=== PATIENT | male | born 1985 | race Caucasian/White ===

== ENCOUNTER 2018-08-31 13:13 | Outpatient (CLI) | payer OTHER, SELFPAY ==
[2018-09-01 10:58] LABS: Lyme Ab w Rflx to Lyme Confirm Negative
== END 2018-08-31 13:33 ==
PROVIDERS: PCP Naturopath; Visit Provider Naturopath
DX: M25.50 Pain in unspecified joint (principal); R53.83 Other fatigue; R51 Headache
CPT/HCPCS: 36415; 86618

== ENCOUNTER 2019-12-15 07:05 | Outpatient (CLI) | payer MEDICAID, SELFPAY ==
[2019-12-17 18:55] LABS: Patient Race White; SARS-CoV-2 RNA Undetected (Undetected); SARS-CoV-2 Specimen Source Nasopharynx
== END 2019-12-15 07:25 ==
PROVIDERS: PCP Naturopath; Visit Provider Family Medicine
DX: Z11.59 Encounter for screening for other viral diseases (principal)
CPT/HCPCS: U0003

== ENCOUNTER 2020-01-04 08:59 | Outpatient (CLI) | payer MEDICAID, SELFPAY ==
[2020-01-07 13:25] LABS: Patient Race White; SARS-CoV-2 RNA Undetected (Undetected); SARS-CoV-2 Specimen Source Nasal
== END 2020-01-04 09:19 ==
PROVIDERS: PCP Naturopath; Visit Provider Naturopath
DX: R51.9 Headache, unspecified (principal); R53.83 Other fatigue; M79.10 Myalgia, unspecified site; J02.9 Acute pharyngitis, unspecified
CPT/HCPCS: U0003

== ENCOUNTER 2020-08-18 08:54 | Outpatient (CLI) | payer MEDICAID, SELFPAY ==
[2020-08-18 14:41] LABS: ALT 53 U/L (16-63); AST 25 U/L (15-37); Albumin 4.1 g/dL (3.4-5.0); Alkaline Phosphatase 72 U/L (46-116); Anion Gap 8.9 mmol/L (3-11); BUN 14 mg/dL (7-18); Bilirubin, Total 0.8 mg/dL (0.2-1.0); CO2 28.1 mmol/L (21.0-32.0); CREATININE 0.9 mg/dL (0.70-1.30); Calcium 9.7 mg/dL (8.5-10.1); Calculated LDL 229 mg/dL (<100); Chloride 104 mmol/L (98-107); Cholesterol 298 mg/dL (<200); Glucose 91 mg/dL (74-106); HDL Cholesterol 35 mg/dL (40-60); Potassium 4.2 mmol/L (3.5-5.1); Sodium 141 mmol/L (136-145); Total Protein 7.2 g/dL (6.4-8.2); Triglyceride 171 mg/dL (<150)
[2020-08-19 09:46] LABS: HIV-1/2 Ag & Ab Screen Negative (Negative)
[2020-08-20 20:14] LABS: HSV 1 PCR, Blood Negative (Negative); HSV 2 PCR, Blood Negative (Negative)
[2020-08-21 10:26] LABS: Hepatitis A Antibody IgM Negative (Negative); Hepatitis B Core Antibody Negative (Negative); Hepatitis B surface Ag Negative (Negative); Hepatitis C Ab w Rflx HCV PCR Negative (Negative)
[2020-08-21 16:01] LABS: Syphilis Total Ab w/Reflex Nonreactive (Nonreactive)
== END 2020-08-18 08:55 | disposition home or self-care (01) ==
LOC: LBO 08:57
PROVIDERS: PCP Naturopath; Visit Provider Naturopath
DX: E78.5 Hyperlipidemia, unspecified (principal); Z11.3 Encounter for screening for infections with a predominantly sexual mode of transmission; Z11.4 Encounter for screening for human immunodeficiency virus [HIV]; Z11.59 Encounter for screening for other viral diseases
CPT/HCPCS: 36415; 80053; 80061; 86704; 86706; 86709; 86803; 87340; 87389; 87529; 86780

== ENCOUNTER 2020-08-22 10:30 | Outpatient (REF) | payer MEDICAID, SELFPAY ==
[2020-08-24 15:12] LABS: Chlamydia Result Negative (Negative); GC Result Negative (Negative)
== END 2020-08-22 10:31 | disposition home or self-care (01) ==
LOC: LBN 10:30
PROVIDERS: PCP Naturopath; Visit Provider Naturopath
DX: Z11.3 Encounter for screening for infections with a predominantly sexual mode of transmission (principal)
CPT/HCPCS: 87491; 87591

== ENCOUNTER 2021-07-17 22:10 | Emergency (ER) | payer MEDICAID, SELFPAY ==
[2021-07-17 22:15] VITALS: BP 140/94; PULSE 121; RESP 21; TEMP 38.2; O2SAT 96
--- NOTE | 2021-07-17 22:30 | DI.RAD_ITS ---
Exam(s) XR PORTABLE CHEST AP EXAM: XR PORTABLE CHEST AP CLINICAL HISTORY: fever of unknown origin. TECHNIQUE: 2D digital imaging was performed. COMPARISON: No exams were available for comparison FINDINGS: Single AP portable view. Heart size is upper normal. The mediastinum is not widened. There is subsegmental platelike atelectasis in the lower right lung zone. No other pulmonary finding s nor pleural effusions. IMPRESSION: Subsegmental platelike atelectasis noted in the lower right lung zone. DATA REPOSITORY: RADIATION DOSE DELIVERED: All CT scans at this facility use at least one of these dose optimization techniques: automated exposure control; mA and/or kV adjustment per patient size (includes targeted e xams where dose is matched to clinical indication); or iterative reconstruction.
[2021-07-17] MEDS: Normal Saline 1,000 ML 1000 ML IV (22:55)
[2021-07-17 23:01] LABS: Lactate 1.8 mmol/L (0.6-1.4)
[2021-07-17 23:04] LABS: Abs Immature Grans 0.06 10^3/uL (0.0-0.06); Absolute Basophil Count 0.03 10^3/uL (0.0-0.2); Absolute Monocyte Count 0.64 10^3/uL (0.1-0.8); Basophils % 0.2; Eosinophils % 0.4; HCT 43.6 % (40.0-50.0); HGB 15.3 g/dL (13.5-17.5); Immature Grans % 0.4; Lymphocytes % 11.5; MCH 29.4 pg (27.0-33.0); MCHC 35.1 % (32.0-36.0); MCV 84 fL (80-95); MPV 9.5 fL (8.0-11.0); Monocytes % 4.7; Neutrophils % 82.8; Platelet Count 237 10^3/uL (130-400); RBC 5.21 10^6/uL (4.36-5.78); RDW-SD 36.1 fL; WBC 13.61 10^3/uL (4.4-10.8)
[2021-07-17 23:12] VITALS: TEMP 37.9
[2021-07-17] MEDS: Ketorolac 15 MG/ML VIAL IVP (23:12)
[2021-07-17 23:13] LABS: Absolute Eosinophil Count 0.05 10^3/uL (0.0-0.7); Absolute Lymphocyte Count 1.57 10^3/uL (1.2-3.4); Absolute Neutrophil Count 11.27 10^3/uL (1.2-6.7)
[2021-07-17 23:17] LABS: ALT 56 U/L (16-63); AST 23 U/L (15-37); Albumin 4.1 g/dL (3.4-5.0); Alkaline Phosphatase 87 U/L (46-116); Anion Gap 8.7 mmol/L (3-11); BUN 18 mg/dL (7-18); Bilirubin, Total 0.7 mg/dL (0.2-1.0); C-Reactive Protein 0.27 mg/dL (0.0-0.3); CO2 27.3 mmol/L (21.0-32.0); Calcium 8.7 mg/dL (8.5-10.1); Chloride 102 mmol/L (98-107); Glucose 150 mg/dL (74-106); Potassium 3.6 mmol/L (3.5-5.1); Sodium 138 mmol/L (136-145); Total Protein 7.9 g/dL (6.4-8.2)
--- NOTE | 2021-07-17 23:18 | W.ED.GENAD ---
Discharge Plan Disposition Patient Disposition: HOME Condition: Improving Discharge Details Clinical Impression: Fever, Atelectasis of right lung Primary Care Provider: Leola Fernández ED Provider: Shakir Maldonado Home Meds and New Rx's Prescriptions: New levofloxacin 750 mg tablet 750 mg PO DAILY Qty: 7 0RF Continued sulfamethoxazole-trimethoprim 1 EACH tablet 1 ea PO DAILY Qty: 42 1RF milk thistle 150 MG capsule 500 mg PO DAILY niacin 500 MG tablet 500 mg PO DAILY omega-3 fatty acids-fish oil [Fish Oil] 1 EACH capsule 1,000 mg PO DAILY red yeast rice 600 MG tablet 600 mg PO DAILY Diatonaceous Earth 1 tsp PO DAILY Discharge Instructions Instructions: Fever in Adults (ED) Additional Instructions: At this time the patient is atypical. Your laboratory work-up does not show clear evidence of infection. We are still waiting on your blood cultures and the other send out test to return which may help give us more information and understanding. Although your chest x-ray looks very unremarkable and there is no evidence of significant pneumonia, there is evidence of a small area of what is called atelectasis which may be the very early start of pneumonia in your right lung. Out of an abundance of precaution we will continue you on an antibiotic for the time being for treatment of this. we have sent this antibiotic to your pharmacy on file. The antibiotic is called Levaquin, and there is risk of tendon irritation. Please avoid any vigorous physical activity while on the antibiotic. If you notice any pain in your ligaments or joint please stop taking the antibiotic immediately and follow-up closely with the primary care provider. Please drink plenty of fluids, stay well-hydrated, and manage your fever with Tylenol and Motrin. If you notice any worsening of your symptoms, or any new symptoms such as vomiting, diarrhea, fever, chills, shortness of breath, chest pain, numbness, weakness, or fainting , please return immediately to the emergency department for reevaluation. Please follow up with your primary care provider as soon as possible for reassessment and reevaluation. As always, it was a pleasure participating in your medical care today. Referrals: Leola Fernández, ASSISTANT CLINICAL DIRECTOR [Primary Care Provider] - Medical Decision Making This is a 36-year-old male with a past medical history of high cholesterol, as well as a very complicated and quite opaque history of multiple previous undiagnosed infections that have often led to negative culture result and paradoxically long courses of antibiotics with uncertain treatment directions. The patient presents today for evaluation of fever. Patient states that this evening he did have a small amount of alcohol, and while having dinner he noticed pain and swelling in his groin, specifically his left and right inguinal areas, as well as mild achiness in his left toe, fever, chills, and generalized achiness and malaise throughout. He has had his COVID-vaccine. He has been boosted as well. He states that this is similar to how some of his previous episodes have started, and at the same time not identical. He denies any other contacts, however his significant other is a fourth-year medical student about to start residency. She has not been sick though. He denies any history of STDs, and in fact he states that previous STD testing has resulted in negative cultures for gonorrhea or chlamydia. He denies any dysuria. He denies any cough or shortness of breath. He denies any trauma. He does state that the aching in his foot has been going on for the past few weeks but is worsened today. He denies any neck pain or headaches. He denies any other complaints at this time. He denies any known history of HIV. He denies use of IV or illicit drugs before. Physical exam is relatively unremarkable. Scattered inguinal lymph nodes, but no genital abnormalities otherwise. No discharge. Lungs are clear. No meningeal signs. Left great toe demonstrates minimal subtle swelling compared to the right, but certainly no clinical evidence of significant redness or profound warmth comparatively. No clear evidence of a septic joint. The patient's history is certainly atypical. I am not sure if this is a red davis to the current scenario, or the same presentation in a different form. Symptoms may certainly be secondary to a viral etiology tonight, but differential also does include atypical things like mast cell degranulation syndrome, HIV, tickborne illness, or even latent syphilis. Symptoms appear inconsistent with significant pneumonia or meningitis currently. No murmur is auscultated. Symptoms inconsistent with endocarditis. We will evaluate for concerning viral etiologies including flu, COVID, or RSV. We will rehydrate, treat the patient's fever, monitor closely and reassess. 12:55 AM Patient is actually feeling much better after Toradol and Ofirmev. He states that he feels significantly improved. Laboratory work-up has returned very normal. He has a mild white count of 13, but no bandemia. ESR and CRP are both normal. Lactate is unremarkable at 1.8. Electrolytes normal. Urinalysis negative. COVID, flu and RSV are negative. However, lab initially reported that his procalcitonin was 2.0, and because of this in conjunction with his fever I was concerned for a bacterial component, he was started on Levaquin because of this. However about an hour and a half after this resulted, lab then called back and said that it was an error, and his procalcitonin was actually less than 0.1. Patient is certainly a bit of a conundrum. It may just be a viral etiology that causes fever, but with a negative ESR, CRP and procalcitonin I feel that bacterial etiology is less likely. Although the chest x-ray is notably clear on my review, radiology does feel that there is potentially minor subsegmental atelectasis noted in the right mid lung base. Out of an abundance of precaution with the patient's fever since we already started a first dose of antibiotics will continue a course of Levaquin at this time. I do feel that it would be beneficial to see where things go once his tick panel comes back as well as his blood cultures. With no neck pain, meningeal signs, tender abdomen, large inflamed joints, and a negative ESR, negative CRP, and negative procalcitonin I do not see an indication for admission at this time. Additionally patient feels much clinically as it is. I do feel that the patient is stable for discharge. He does have close follow-up in 48 hours. I discussed both with him and his significant other red flags that would be indicative of prompt return. I have extensively reviewed the treatment plan and discharge instructions with the patient. I have addressed all patient concerns at this time. The patient was made aware of what symptoms to monitor for that would warrant a return to the emergency department. Discussed the plan with the patient, they demonstrate verbal understanding and agreement with our assessment and plan at this time. The documentation in this chart was dictated using [employer] dictation software. Please excuse any dictation errors. . FINDINGS: Lungs: Minor subsegmental atelectasis in the right mid lung zone. No airspace consolidation. No significant interstitial disease for the degree of inflation. Pleural spaces: No pleural effusion. No pneumothorax. Heart/Mediastinum: No cardiomegaly. Bones/joints: No acute fracture. IMPRESSION: Minor subsegmental atelectasis in the right mid lung zone. Thank you for allowing us to participate in the care of your patient. Dictated and Authenticated by: Rosy Hawkins MD 07/18/2021 12:52 AM Eastern Time ([place] & [place]) HPI General Date/Time Provider Initiated Documentation: 07/17/21 22:14. HPI Narrative: This is a 36-year-old male with a past medical history of high cholesterol, as well as a very complicated and quite opaque history of multiple previous undiagnosed infections that have often led to negative culture result and paradoxically long courses of antibiotics with uncertain treatment directions. The patient presents today for evaluation of fever. Patient states that this evening he did have a small amount of alcohol, and while having dinner he noticed pain and swelling in his groin, specifically his left and right inguinal areas, as well as mild achiness in his left toe, fever, chills, and generalized achiness and malaise throughout. He has had his COVID-vaccine. He has been boosted as well. He states that this is similar to how some of his previous episodes have started, and at the same time not identical. He denies any other contacts, however his significant other is a fourth-year medical student about to start residency. She has not been sick though. He denies any history of STDs, and in fact he states that previous STD testing has resulted in negative cultures for gonorrhea or chlamydia. He denies any dysuria. He denies any cough or shortness of breath. He denies any trauma. He does state that the aching in his foot has been going on for the past few weeks but is worsened today. He denies any neck pain or headaches. He denies any other complaints at this time. He denies any known history of HIV. He denies use of IV or illicit drugs before. Related Data Home Medications Medication Instructions Recorded Confirmed Diatonaceous Earth 1 tsp PO DAILY 10/30/16 milk thistle 150 mg capsule 500 mg PO DAILY 10/30/16 10/30/16 niacin 500 mg tablet 500 mg PO DAILY 10/30/16 10/30/16 omega-3 fatty acids-fish oil 340 1,000 mg PO DAILY 10/30/16 10/30/16 mg-1,000 mg capsule (Fish Oil) red yeast rice 600 mg tablet 600 mg PO DAILY 10/30/16 10/30/16 sulfamethoxazole 400 1 ea PO DAILY #42 tabs 01/07/17 mg-trimethoprim 80 mg tablet levofloxacin 750 mg tablet 750 mg PO DAILY #7 tabs 07/18/21 Previous Rx's Medication Instructions Recorded sulfamethoxazole 400 1 ea PO DAILY #42 tabs 01/07/17 mg-trimethoprim 80 mg tablet levofloxacin 750 mg tablet 750 mg PO DAILY #7 tabs 07/18/21 Allergies Allergy/AdvReac Type Severity Reaction Status Date / Time No Known Allergies Allergy Unverified 07/17/21 22:23 General Stated Complaint: Cellulitis JANICE: 3 Review of Systems All systems reviewed & are unremarkable except as noted in HPI and below PFSH All Active Problems (Updated 07/18/21 @ 01:51 by Shakir Maldonado DO) Fever (Acute) Atelectasis of right lung (Acute) Arthralgia (Acute) Medical History Cellulitis and abscess of leg Cellulitis of scrotum Epididymitis (12/27/16) per records received, first occurred in 2014. saw urology, Dr. Garcia in 2017. Rash Family History Father Diabetes Paternal Grandmother Diabetes type 2 Mother Hyperlipidemia Maternal Grandfather Hyperlipidemia Social History Smoking/Tobacco Use Status: Never Smoking risk assessment performed?: Yes Alcohol Intake: current Alcohol Intake frequency: 0-2 drinks per day Drug use: Never Adopted: No Caregiver/Support person: No Foster care: No Household members: significant other Housing: house Number of Children: 0 Communication Needs: None Education Level: college Details: bachelor's degree Do you need help understanding health information?: Never Pets and animals: Yes Pets and animals: dog(s) Sexually active: Yes Do you think of yourself as: straight/heterosexual Current gender identity: female What is your relationship status?: living with partner How often do you talk on the phone with friends or family?: three or more times per week How often do you get together with friends or relatives?: twice per week Do you belong to any clubs or organized social groups?: no Panel score (0-1 are the most socially isolated patients): 2 What type of physical activity do you participate in: walking Duration: > 90 minutes/day Frequency: 5-6 times per week Carole/Anglican: None Special carole needs: No Seatbelt use: always Helmet use: Yes Helmet use: always Drive intox or ride w/intox trash truck driver: No Do you feel safe in your relationship?: Yes Exam Narrative Exam Narrative: 1.Const: Well-nourished, Well-developed, appearing stated age 2.Eyes: PERRL, no conjunctival injection, and symmetrical lids. 3.ENT: Atraumatic external nose and ears. Moist MM. Neck: Symmetric, trachea midline, No thyromegaly. Patient demonstrates good movement of cervical neck. There is no nuchal rigidity, no nuchal tenderness. Patient is able to flex the neck without any difficulty or significant pain. Negative Kernig's and Brudzinski sign. No evidence of erythema in the tympanic members. No significant erythema in the posterior oropharynx. 4.CVS: +S1/S2, No murmurs or gallops. Peripheral pulses 2+ and equal in all extremities. Brisk capillary refill in all extremities. 5.RESP: Unlabored respiratory effort. Clear to auscultation bilaterally. No wheezes rales or rhonchi 6.GI: Soft, Nontender/Nondistended, No hepatosplenomegaly. No guarding or rebound. Genital exam demonstrates a few scattered inguinal lymph nodes. No large lymph nodes, granulomas, or bullae's. No crepitus, or tenderness in the thighs, testicles, or penis. No significant discharge from the urethral meatus. No tenderness over the penile shaft or head. Normal cremasteric reflex bilaterally. No clinical evidence of epididymitis, orchitis, or penile infection. 7.MSK: Normocephalic/Atraumatic, Extremities w/o deformity or ttp No cyanosis or clubbing, Normal movement of all extremities. The patient's left great toe demonstrates minimal swelling compared to the right, no significant redness, no significant meli warm comparatively. There may be a minimal slight amount of warm but this would be very subtle. No pain with passive or active movement of the great toes. 8.Skin: Warm, Dry. No rashes or lesions. 9.Neuro: delivery rep II-XII grossly intact. Sensation grossly intact, no focal neurologic deficits. 10.Psych: (AAO) x3. Appropriate mood and affect Course Vital Signs Vital signs: Vital Signs Temperature 38.2 C H 07/17/21 22:15 Pulse 121 H 07/17/21 22:15 Respiratory Rate 21 07/17/21 22:15 Blood Pressure 140/94 H 07/17/21 22:15 Pulse Oximetry 96 07/17/21 22:15 Temperature 37.9 C H 07/17/21 23:12 Temperature Source Skin 07/17/21 22:15 Pulse 121 H 07/17/21 22:15 Respiratory Rate 21 07/17/21 22:15 Blood Pressure 140/94 H 07/17/21 22:15 Pulse Oximetry 96 07/17/21 22:15 Oxygen Delivery Method Room Air 07/17/21 22:18 Oxygen Flow Rate 0 07/17/21 22:18 Lab/Test Results Lab/Test Results: 07/17/21 22:35 Blood Blood Culture - Pending 07/17/21 22:32 Blood Blood Culture - Pending Laboratory Tests Range/Units 07/17/21 07/17/21 22:55 22:55 WBC (4.4-10.8) 10^3/uL 13.61 H RBC (4.36-5.78) 10^6/uL 5.21 Hgb (13.5-17.5) g/dL 15.3 Hct (40.0-50.0) % 43.6 MCV (80-95) fL 84 MCH (27.0-33.0) pg 29.4 MCHC (32.0-36.0) % 35.1 RDW (11.8-14.1) % 12.0 Plt Count (130-400) 10^3/uL 237 MPV (8.0-11.0) fL 9.5 Immature Gran % 0.4 Neutrophils % 82.8 Lymphocytes % 11.5 Monocytes % 4.7 Eosinophils % 0.4 Basophils % 0.2 Nucleated RBC % (0.0-0.3) % 0.0 Absolute Neutrophils (1.2-6.7) 10^3/uL 11.27 H Absolute Lymphocytes (1.2-3.4) 10^3/uL 1.57 Absolute Monocytes (0.1-0.8) 10^3/uL 0.64 Absolute Eosinophils (0.0-0.7) 10^3/uL 0.05 Absolute Basophils (0.0-0.2) 10^3/uL 0.03 VBG Lactate (0.6-1.4) mmol/L 1.8 H
[2021-07-17 23:22] LABS: ESR < 1 mm/hr (0-15)
[2021-07-17 23:56] LABS: COVID-19 PCR Negative (Negative); Influenza A PCR Negative (Negative); Influenza B PCR Negative (Negative); RSV PCR Negative (Negative)
[2021-07-17 23:58] VITALS: BP 143/49; PULSE 111; RESP 18; TEMP 40; O2SAT 98
[2021-07-17 23:59] LABS: Source Nasopharynx
[2021-07-18] MEDS: levoFLOXacin 750 MG/150 ML BAG 100 MG IVPB (00:15)
[2021-07-18 00:20] LABS: Bilirubin Negative (Negative); Blood Negative (Negative); Clarity Clear (Clear); Glucose Negative (Negative); Ketones Negative (Negative); Leukocyte Esterase Negative (Negative); Nitrite Negative (Negative); Specific Gravity >= 1.030 (1.005-1.025); Urobilinogen 0.2 EU/dL (Up TO 0.2); pH 6.5 (5-8)
[2021-07-18 00:32] LABS: Procalcitonin < 0.1 ng/mL
--- NOTE | 2021-07-18 00:53 | DI.VRAD_ITS ---
PROCEDURE INFORMATION: Exam: XR Chest Exam date and time: 07/17/2021 23:50 Age: 36 years old Clinical indication: Patient HX: Fever of unknown origin TECHNIQUE: Imaging protocol: XR of the chest. Views: 1 view. COMPARISON: CT PELVIC/LOWER ABD WITH CON(P) 01/06/2017 10:13 FINDINGS: Lungs: Minor subsegmental atelectasis in the right mid lung zone. No airspace consolidation. No significant interstitial disease for the degree of inflation. Pleural spaces: No pleural effusion. No pneumothorax. Heart/Mediastinum: No cardiomegaly. Bones/joints: No acute fracture. IMPRESSION: Minor subsegmental atelectasis in the right mid lung zone. Dictated and Authenticated by: Rosy Hawkins MD. Ordering:RAMON Schilling MD
[2021-07-18] MEDS: ACETAMINOPHEN 1,000 MG/100 ML BTL 400 MG IVPB (00:57)
[2021-07-18] MEDS: Normal Saline 1,000 ML 1000 ML IV (00:58)
[2021-07-18 02:17] VITALS: BP 111/51; PULSE 120; RESP 10; TEMP 39; O2SAT 96
[2021-07-19 10:06] LABS: HIV-1/2 Ag & Ab Screen Negative (Negative)
[2021-07-19 10:42] LABS: Lyme Ab w Rflx to Lyme Confirm Negative (Negative); Syphilis Serology (RPR) Negative (Negative)
[2021-07-19 15:31] LABS: Chlamydia Result Negative (Negative); GC Result Negative (Negative)
[2021-07-21 01:16] LABS: Anaplasma phagocytophilum Negative (Negative); B. miyamotoi PCR Negative (Negative); Babesia divergens/MO-1 Negative (Negative); Babesia duncani Negative (Negative); Babesia microti Negative (Negative); Ehrlichia chaffeensis Negative (Negative); Ehrlichia ewingii/canis Negative (Negative); Ehrlichia muris eauclairensis Negative (Negative)
== END 2021-07-18 02:30 | disposition home or self-care (01) ==
PROVIDERS: Emergency Provider Student in an Organized Health Care Education/Training Program; PCP Nurse Practitioner
DX: R50.9 Fever, unspecified (principal); J98.11 Atelectasis; R79.89 Other specified abnormal findings of blood chemistry
CPT/HCPCS: 36415; 80053; 84145; 85652; 87040; 87389; 87491; 87591; 87637; 87798; 96361; 96365; 96367; 96375; 99284; 71045; 81003; 83605; 85025; 86140; 86592; 86618; J0131; J1885; J1956

== ENCOUNTER 2021-07-26 03:11 | Outpatient (CLI) | payer MEDICAID, SELFPAY ==
[2021-07-26 09:22] LABS: ALT 41 U/L (16-63); AST 19 U/L (15-37); Albumin 3.7 g/dL (3.4-5.0); Alkaline Phosphatase 78 U/L (46-116); Anion Gap 4.3 mmol/L (3-11); BUN 15 mg/dL (7-18); Bilirubin, Total 0.6 mg/dL (0.2-1.0); CO2 28.7 mmol/L (21.0-32.0); CREATININE 0.9 mg/dL (0.70-1.30); Calcium 8.7 mg/dL (8.5-10.1); Chloride 106 mmol/L (98-107); Glucose 93 mg/dL (74-106); Potassium 4.2 mmol/L (3.5-5.1); Sodium 139 mmol/L (136-145); TSH (W/Ref FT4) 1.29 uIU/mL (0.36-3.74); Uric Acid 7.9 mg/dL (3.5-7.2)
[2021-07-26 09:35] LABS: Calculated LDL 210 mg/dL (<100); Cholesterol 299 mg/dL (<200); HDL Cholesterol 29 mg/dL (40-60); Triglyceride 303 mg/dL (<150)
== END 2021-07-26 03:12 | disposition home or self-care (01) ==
PROVIDERS: PCP Nurse Practitioner; Visit Provider Nurse Practitioner
DX: E78.2 Mixed hyperlipidemia (principal); M79.675 Pain in left toe(s)
CPT/HCPCS: 36415; 80053; 80061; 84443; 84550